=== PATIENT | female | born 2000 | race African-American/Black ===

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

== ENCOUNTER 2024-10-12 12:31 | Emergency (ER) | payer SELFPAY ==
[~2024-10-12] VITALS: Ht 157.5 cm; Wt 81.0 kg
[2024-10-12 12:35] VITALS: O2SAT 99
[2024-10-12 12:50] VITALS: BP 124/73; PULSE 75; RESP 18; TEMP 98.5; O2SAT 100
== END 2024-10-12 14:36 | disposition left against medical advice (07) ==
LOC: ER 12:31
DX: R22.2 Localized swelling, mass and lump, trunk (principal)
CPT/HCPCS: 99281